=== PATIENT | male | born 1980 | race American Indian/Alaskan Native ===

== ENCOUNTER 2021-01-30 22:19 | Emergency (ER) | payer OTHER ==
[2021-01-30 22:50] VITALS: BP 145/92
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
[2021-01-31] MEDS ORDERED: IBUPROFEN 800 MG TAB PO ONE (01:00)
[2021-01-31] MEDS ORDERED: ACETAMINOPHEN 500 MG TAB PO STA (01:00)
== END 2021-01-31 01:45 | disposition home or self-care (01) ==
LOC: EDBD → ED 22:19
DX: S39.92XA Unspecified injury of lower back, initial encounter (principal); M54.30 Sciatica, unspecified side; Z79.899 Other long term (current) drug therapy; V49.59XA Passenger injured in collision with other motor vehicles in traffic accident, initial encounter; Y92.410 Unspecified street and highway as the place of occurrence of the external cause; Y93.89 Activity, other specified; Y99.8 Other external cause status
CPT/HCPCS: 72100